=== PATIENT | male | born 1990 | race American Indian/Alaskan Native ===

== ENCOUNTER 2018-01-18 14:42 | Emergency (ER) | payer OTHER ==
[2018-01-18 14:47] VITALS: BP 131/73; PULSE 82; RESP 20; TEMP 99.8; O2SAT 95
[2018-01-18] MEDS ORDERED: Penicillin G Benzathine 1.2 Mill Unit/2 ml Syr IM ONE ×2 (14:58→15:09)
--- NOTE | 2018-01-18 15:03 | C.PDOC ---
History Of Present Illness 27-YEAR-OLD MALE, PRESENTS TO THE EMERGENCY DEPARTMENT WITH COMPLAINTS OF SORE THROAT, SUBJ FEVER, CHILLS AND MYALGIA X 1 WEEK. NO SICK CONTACTS. DENIES OTHER ASSOC SX. NO MEDS TRIED EXAM NONTOXIC NARD HEENT +B/L PHARYNGITIS W EXUDATE, UVULA MIDLINE. NO DROOL. VOICE WNL. NECK SUPPLE REMAINDER NEG Time Seen by Provider: 01/18/18 14:51 Chief Complaint (Nursing): ENT Problem Past Medical History Reviewed: Historical Data, Nursing Documentation, Vital Signs Vital Signs: Last Vital Signs Temp 99.8 F H 01/18/18 14:45 Pulse 82 01/18/18 14:45 Resp 20 01/18/18 14:45 BP 131/73 01/18/18 14:45 Pulse Ox 95 01/18/18 15:03 Family History: States: No Known Family Hx - Social History Hx Alcohol Use: Yes Hx Substance Use: No - Immunization History Hx Tetanus Toxoid Vaccination: No Hx Influenza Vaccination: No Hx Pneumococcal Vaccination: No Review Of Systems Constitutional: Positive for: Fever, Malaise ENT: Positive for: Throat Pain Cardiovascular: Negative for: Chest Pain Respiratory: Negative for: Cough, Shortness of Breath, Sputum Gastrointestinal: Negative for: Nausea, Vomiting Musculoskeletal: Negative for: Neck Pain, Back Pain Skin: Negative for: Rash Neurological: Negative for: Weakness, Numbness Physical Exam - Physical Exam Appears: Non-toxic, No Acute Distress Skin: Normal Color, Warm, Dry, No Rash Head: Atraumatic Eye(s): bilateral: Normal Inspection Ear(s): Bilateral: Normal Nose: Normal Oral Mucosa: Moist Lips: Normal Appearing Throat: Other (+B/L PHARYNGITIS W EXUDATE, UVULA MIDLINE. NO DROOL. VOICE WNL. ) Neck: Normal ROM, Trachea Midline, No Step Off Deformity, Supple Chest: Symmetrical Cardiovascular: Rhythm Regular, No Murmur Respiratory: Normal Breath Sounds, No Accessory Muscle Use (No acute respiratory distress) Extremity: Normal ROM, No Deformity, No Swelling Neurological/Psych: Oriented x3, Normal Speech ED Course And Treatment O2 Sat by Pulse Oximetry: 95 Disposition Counseled Patient/Family Regarding: Diagnosis, Need For Followup - Disposition Referrals: YOUR,PMD [Other] Disposition: HOME/ ROUTINE Disposition Time: 15:02 Condition: IMPROVED Instructions: Sore Throat, Adult (DC) Forms: [facility] (Upper Sorbian), Work Excuse - Clinical Impression Clinical Impression: Acute pharyngitis - Scribe Statement The provider has reviewed the documentation as recorded by the Scribe (Jamee Rick) All medical record entries made by the Scribe were at my direction and personally dictated by me. I have reviewed the chart and agree that the record accurately reflects my personal performance of the history, physical exam, medical decision making, and the department course for this patient. I have also personally directed, reviewed, and agree with the discharge instructions and disposition.
== END 2018-01-18 15:12 | disposition home or self-care (01) ==
LOC: C.ER 14:42
DX: J02.9 Acute pharyngitis, unspecified (principal)
CPT/HCPCS: 96372; 99283; J0561; J8540